=== PATIENT | male | born 1955 | race Caucasian/White ===

== ENCOUNTER 2024-10-13 10:51 | Emergency (ER) | payer MEDICARE, OTHER | END 2024-10-13 12:10 | disposition home or self-care (01) | LOC: BURERS 10:51 | DX: S61.012A Laceration without foreign body of left thumb without damage to nail, initial encounter (principal); I10 Essential (primary) hypertension; Z23 Encounter for immunization; Z79.899 Other long term (current) drug therapy; Z79.82 Long term (current) use of aspirin; W29.3XXA Contact with powered garden and outdoor hand tools and machinery, initial encounter; Y92.009 Unspecified place in unspecified non-institutional (private) residence as the place of occurrence of the external cause | CPT/HCPCS: 90471 ==